=== PATIENT | male | born 1980 | race Caucasian/White ===

== ENCOUNTER 2021-10-18 14:12 | Emergency (ER) | payer OTHER | END 2021-10-18 17:18 | disposition home or self-care (01) | LOC: FER 14:12 | DX: Z00.8 Encounter for other general examination (principal); F15.10 Other stimulant abuse, uncomplicated; I10 Essential (primary) hypertension; F17.210 Nicotine dependence, cigarettes, uncomplicated | CPT/HCPCS: 99283 ==